=== PATIENT | male | born 1945 | race Caucasian/White ===

== ENCOUNTER 2017-02-25 09:44 | Day surgery (SDC) | payer MEDICARE ==
[~2017-02-25] VITALS: Ht 182.9 cm; Wt 113.4 kg
--- NOTE | ~2017-02-25 | EGD ---
EGD REPORT [facility] [address] [address] NAME: SHILO DENIS : [birth year] STATUS : [facility]#: [id number] AGE: 71 ADM/REG DATE : 02/25/17 MR#: [id number] REPORT SERV DATE: 03/04/17 DICTATED BY: SHILO BLAKELY DATE: 03/04/17 REPORT STATUS : Draft [facility]ANS[facility]: [facility] DATE: 03/04/17 [facility]oscopy Center Patient Name: Shilo Denis Date of : 1945 Attending MD: SHILO BLAKELY MD Procedure Date No Time: 02/25/2017 Procedure: Colonoscopy Indications: Hematochezia, Melena Referring MD: MARINA REYES Medicines: Monitored Anesthesia Care Complications: No immediate complications. Procedure: Pre-Anesthesia Assessment: - ASA Grade Assessment: III - A patient with severe systemic disease. After I obtained informed consent, the scope was passed under direct vision. Throughout the procedure, the patient's blood pressure, pulse, and oxygen saturations were monitored continuously. The CF [id number] was introduced through the anus and advanced to the cecum, identified by appendiceal orifice and ileocecal valve. The colonoscopy was performed with moderate difficulty due to significant looping and a tortuous colon. Successful completion of the procedure was aided by applying abdominal pressure. The patient tolerated the procedure well. The quality of the bowel preparation was adequate. Findings: The digital rectal exam was normal. Pertinent negatives include no palpable rectal lesions. A pedunculated polyp was found in the cecum. The polyp was 11 mm in size. The polyp was removed with a cold snare. Resection and retrieval were complete. A sessile polyp was found in the ascending colon. The polyp was 6 mm in size. The polyp was removed with a cold biopsy forceps. Resection and retrieval were complete. A sessile polyp was found in the transverse colon. The polyp was 5 mm in size. The polyp was removed with a cold biopsy forceps. Resection and retrieval were complete. Multiple diverticula were found in the sigmoid colon. Hemorrhoids were found during retroflexion and were moderate. Impression: - One 11 mm polyp in the cecum. Resected and retrieved. - One 6 mm polyp in the ascending colon. Resected and retrieved. EGD REPORT [address] [address] NAME: SHILO DENIS : [birth year] STATUS : [facility] PAT#: [id number] AGE: 71 ADM/REG DATE : 02/25/17 MR#: [id number] REPORT SERV DATE: 03/04/17 DICTATED BY: SHILO BLAKELY DATE: 03/04/17 REPORT STATUS : Draft TRANSCRIBED BY: [employer] DATE: 03/04/17 - One 5 mm polyp in the transverse colon. Resected and retrieved. - Diverticulosis in the sigmoid colon. - Hemorrhoids. Recommendation: - Patient has a contact number available for emergencies. The signs and symptoms of potential delayed complications were discussed with the patient. Return to normal activities tomorrow. Written discharge instructions were provided to the patient. - Regular diet. - Continue present medications. - Await pathology results. - Repeat colonoscopy for surveillance based on pathology results. - Perform an upper GI endoscopy at appointment to be scheduled. Procedure Code(s): --- Professional --- 33122, Colonoscopy, flexible, proximal to splenic flexure; with removal of tumor(s), polyp(s), or other lesion(s) by snare technique 09679, 59, Colonoscopy, flexible, proximal to splenic flexure; with biopsy, single or multiple Diagnosis Code(s): --- Professional --- D12.3, Benign neoplasm of transverse colon D12.2, Benign neoplasm of ascending colon D12.0, Benign neoplasm of cecum K64.9, Unspecified hemorrhoids K57.30, Diverticulosis of large intestine without perforation or abscess without bleeding K92.1, Melena CPT copyright 2013 [employer]. All rights reserved. The codes documented in this report are preliminary and upon certified medical coder review may be revised to meet current compliance requirements. SHILO BLAKELY MD 02/25/2017 1:18 PM This report has been signed electronically. Number of Addenda: 0 Note Initiated On: 02/25/2017 12:40 PM EGD REPORT [facility] [address]. [address] NAME: SHILO DENISALD : [birth year] STATUS : [facility] PAT#: [id number] AGE: 71 ADM/REG DATE : 02/25/17 MR#: [id number] REPORT SERV DATE: 03/04/17 DICTATED BY: SHILO BLAKELY DATE: 03/04/17 REPORT STATUS : Draft TRANSCRIBED BY: [employer] DATE: 03/04/17 Scope Withdrawal Time 0 hours 17 minutes 11 seconds [id number] [id number]
--- NOTE | ~2017-02-25 | EGD ---
EGD REPORT [facility] [address] [address] NAME: SHILO DENIS : [birth year] STATUS : [facility]#: [id number] AGE: 71 ADM/REG DATE : 02/25/17 MR#: [id number] REPORT SERV DATE: 03/04/17 DICTATED BY: SHILO BLAKELY DATE: 03/04/17 REPORT STATUS : Draft [facility] DATE: 03/04/17 [facility] Patient Name: Shilo Denis Date of : 1945 Attending MD: SHILO BLAKELY MD Procedure Date No Time: 02/25/2017 Procedure: Colonoscopy Indications: Hematochezia, Melena Referring MD: MARINA REYES Medicines: Monitored Anesthesia Care Complications: No immediate complications. Procedure: Pre-Anesthesia Assessment: - ASA Grade Assessment: III - A patient with severe systemic disease. After I obtained informed consent, the scope was passed under direct vision. Throughout the procedure, the patient's blood pressure, pulse, and oxygen saturations were monitored continuously. The CF [id number] was introduced through the anus and advanced to the cecum, identified by appendiceal orifice and ileocecal valve. The colonoscopy was performed with moderate difficulty due to significant looping and a tortuous colon. Successful completion of the procedure was aided by applying abdominal pressure. The patient tolerated the procedure well. The quality of the bowel preparation was adequate. Findings: The digital rectal exam was normal. Pertinent negatives include no palpable rectal lesions. A pedunculated polyp was found in the cecum. The polyp was 11 mm in size. The polyp was removed with a cold snare. Resection and retrieval were complete. A sessile polyp was found in the ascending colon. The polyp was 6 mm in size. The polyp was removed with a cold biopsy forceps. Resection and retrieval were complete. A sessile polyp was found in the transverse colon. The polyp was 5 mm in size. The polyp was removed with a cold biopsy forceps. Resection and retrieval were complete. Multiple diverticula were found in the sigmoid colon. Hemorrhoids were found during retroflexion and were moderate. Impression: - One 11 mm polyp in the cecum. Resected and retrieved. - One 6 mm polyp in the ascending colon. Resected and retrieved. EGD REPORT [address] [address] NAME: SHILO DENIS : [birth year] STATUS : [facility] PAT#: [id number] AGE: 71 ADM/REG DATE : 02/25/17 MR#: [id number] REPORT SERV DATE: 03/04/17 DICTATED BY: SHILO BLAKELY DATE: 03/04/17 REPORT STATUS : Draft TRANSCRIBED BY: [employer] DATE: 03/04/17 - One 5 mm polyp in the transverse colon. Resected and retrieved. - Diverticulosis in the sigmoid colon. - Hemorrhoids. Recommendation: - Patient has a contact number available for emergencies. The signs and symptoms of potential delayed complications were discussed with the patient. Return to normal activities tomorrow. Written discharge instructions were provided to the patient. - Regular diet. - Continue present medications. - Await pathology results. - Repeat colonoscopy for surveillance based on pathology results. - Perform an upper GI endoscopy at appointment to be scheduled. Procedure Code(s): --- Professional --- 91666, Colonoscopy, flexible, proximal to splenic flexure; with removal of tumor(s), polyp(s), or other lesion(s) by snare technique 98955, 59, Colonoscopy, flexible, proximal to splenic flexure; with biopsy, single or multiple Diagnosis Code(s): --- Professional --- D12.3, Benign neoplasm of transverse colon D12.2, Benign neoplasm of ascending colon D12.0, Benign neoplasm of cecum K64.9, Unspecified hemorrhoids K57.30, Diverticulosis of large intestine without perforation or abscess without bleeding K92.1, Melena CPT copyright 2013 [employer]. All rights reserved. The codes documented in this report are preliminary and upon food management aide review may be revised to meet current compliance requirements. SHILO BLAKELY MD 02/25/2017 1:18 PM This report has been signed electronically. Number of Addenda: 0 Note Initiated On: 02/25/2017 12:40 PM EGD REPORT [facility] [address] [address] NAME: SHILO DENISALD : [birth year] STATUS : [facility] PAT#: [id number] AGE: 71 ADM/REG DATE : 02/25/17 MR#: [id number] REPORT SERV DATE: 03/04/17 DICTATED BY: SHILO BLAKELY DATE: 03/04/17 REPORT STATUS : Draft TRANSCRIBED BY: [employer] DATE: 03/04/17 Scope Withdrawal Time 0 hours 17 minutes 11 seconds [id number] [id number]
[~2017-02-25 09:44] MED LIST: ADVAIR230P INH; ASAB PO; ATV.5 PO; BEPREVE EYE OPH; CENTRUM TAB1 TAB PO; CRESTOR10 PO; CRESTOR5 MG PO; FIORINAL PO; FIORINALC PO; FLOMAX4 PO; FLONASE NAS; INHALER; LORTAB10 PO; LOTE20 PO; MAXALT10 MG PO; MAXALTODT1 PO; MUCINEX D1 TA1 OR; MULTIPLE VIT PO; NASONEX NAS; NEXIUM20 M1 PO; NORCO1 TA1 PO; NORCO1 TA2 PO; NORCO1 TAB PO; NORV10 PO; PR25 PO; PREV15 PO; PRILOSEC10 MG PO; PRILOSEC40 MG PO; PRISTIQ50 MG PO; PROAIR HFA INH; PROVHFA INH; SINGULAIR1 PO; TOPXL25 PO; WELL100 PO; ZEGERID1 CA1 PO; ZOFRAN4 PO; ZOL100 PO; ZOL50 PO; ZOLOFT25 MG PO
[2017-03-03] MEDS ORDERED: ZOL50 PO (19:55)
[2017-03-03] MEDS ORDERED: ZEGERID1 CA1 PO (19:56)
[2017-03-03] MEDS ORDERED: NORV10 PO (19:56)
[2017-03-03] MEDS ORDERED: TOPXL50 PO (19:56)
[2017-03-03] MEDS ORDERED: CRESTOR5 MG PO (19:57)
[2017-03-03] MEDS ORDERED: COZ50 PO (19:57)
[2017-03-03] MEDS ORDERED: PLAVIX PO (19:57)
[2017-03-03] MEDS ORDERED: FLONASE NAS (19:58)
[2017-03-03] MEDS ORDERED: FIORICET 50-301 EACH PO (19:59)
[2017-03-03] MEDS ORDERED: REST15 PO (20:00)
[2017-03-03] MEDS ORDERED: NITROSTAT0.4 MG SL (20:00)
[2017-03-03] MEDS ORDERED: ASAB PO (20:01)
[2017-03-03] MEDS ORDERED: VENTOLIN HFA INH (20:01)
[2017-03-03] MEDS ORDERED: [UNRECOGNIZED DRUG - OTHER] PO (20:02)
== END 2017-02-25 23:59 | disposition home or self-care (01) ==
LOC: DMU 09:44
PROVIDERS: Internal Medicine Gastroenterology
PROC: 0DBL8ZX Excision of Transverse Colon, Via Natural or Artificial Opening Endoscopic, Diagnostic (ICD-10-PCS; 2017-02-25)
PROC: 0DBK8ZX Excision of Ascending Colon, Via Natural or Artificial Opening Endoscopic, Diagnostic (ICD-10-PCS; principal; 2017-02-25 11:30)
PROC: 0DBH8ZX Excision of Cecum, Via Natural or Artificial Opening Endoscopic, Diagnostic (ICD-10-PCS; 2017-02-25 11:30)
DX: D12.0 Benign neoplasm of cecum (principal); D12.2 Benign neoplasm of ascending colon; D12.3 Benign neoplasm of transverse colon; K64.9 Unspecified hemorrhoids; K57.30 Diverticulosis of large intestine without perforation or abscess without bleeding; I25.10 Atherosclerotic heart disease of native coronary artery without angina pectoris; D64.9 Anemia, unspecified; G47.33 Obstructive sleep apnea (adult) (pediatric); I10 Essential (primary) hypertension; I48.91 Unspecified atrial fibrillation; Z86.010 Personal history of colon polyps; Z86.73 Personal history of transient ischemic attack (TIA), and cerebral infarction without residual deficits; Z95.5 Presence of coronary angioplasty implant and graft; Z90.49 Acquired absence of other specified parts of digestive tract; Z90.89 Acquired absence of other organs; Z96.652 Presence of left artificial knee joint; Z98.890 Other specified postprocedural states; Z79.899 Other long term (current) drug therapy
CPT/HCPCS: 88305; J2405